=== PATIENT | female | born 1990 | race Caucasian/White ===

== ENCOUNTER → 2016-04-04 | Day surgery (SDC) | payer OTHER ==
[~2016-04-04] MED LIST: ADVICOR PO; AMOXICILLIN500 M1 PO; BIRTH CONTROL PO; EYE DROPS15 M1; HUMALOG100 U/M1; HUMALOG100 U/ML SUBQ; K-DUR20 ME1 PO; KCL PO; LACTINEX T1 TAB.CHEW PO; LANTUS100 U/ML SUBQ; LEVAQUIN PO; LISINOPRIL PO; LORTAB 10-5001 EACH PO; METOPROLOL TAR25 MG; NEURONTIN300 MG PO; NOVOLOG100 U/ML SUBQ; OMNICEF PO; TAMIFLU75 MG PO; ZOVIRAX PO; [UNRECOGNIZED DRUG - OTHER]; [UNRECOGNIZED DRUG - SUPPLY]
--- NOTE | ~2016-04-04 | OR ---
Unit #: [id number] #: [id number] Patient: ANNA SERNA [id number] [address] [address] [id number] O MR#: [id number] NAME: ANNA SERNA ROOM: Date of Procedure: 04/04/2016 Admission Date: 04/04/2016 Surgeon: Fidelia Ocampo M.D. : 1990 Attending Physician: Fidelia Ocampo M.D. Primary Care Physician: Maciel Renee M.D. OPERATIVE REPORT PREOPERATIVE DIAGNOSIS Intermittent exotropia. POSTOPERATIVE DIAGNOSIS Intermittent exotropia. PROCEDURES PERFORMED Bilateral forced ductions and left medial rectus resection, 7 mm via operation. ANESTHESIA General. COMPLICATIONS None. ESTIMATED BLOOD LOSS Less than 1 mL. 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 INDICATIONS FOR PROCEDURE This is a 26-year-old young lady, who presents with intermittent exotropia measuring 20% diopters and primary gaze, and she is status post bilateral strabismus surgery at the age of 8 for the same condition. After discussing the risks, benefits, and alternatives to surgery, including but not limited to bleeding, infection, loss of vision, loss of eye, suture reaction, retinal detachment, persistent deviation, diplopia, need for prism in glasses, and need to return to the operating room, the patient agreed to proceed with surgery. DESCRIPTION OF PROCEDURE The patient was brought back to the operating suite and placed in the supine position. Anesthesia was maintained under general. Both eyes were prepped and draped in usual fashion for ocular surgery. A lid speculum was placed in the right eye. Forced ductions were performed and were found to be negative. A lid speculum was removed. Tegaderm was used to secure the lashes of the left eye, as lid speculum was placed to keep the lids apart. Forced ductions were performed and were found to be negative. The inferonasal conjunctiva was gently lifted with the Gunter forceps to see if there is any adherence to the globe or scar tissue, there were Unit #: [id number] #: [id number] Patient: ANNA SERNA none. A decision was made to isolate the left medial rectus muscle as it seemed that it had not been operated on before. An inferonasal fornix incision was made horizontally to the conjunctiva and vertically to the Tenon capsule. Choi hook was used to engage the medial rectus muscle. This was followed by series of Green hooks. The conjunctival tenon layer was reflected over the toe of the Green hook. A small snip was made through the intermuscular septum. Two Choi hooks were placed through this space and the superior pole test was performed confirming identification of the superior insertion of the muscle. Next, the anterior septal attachments as well as the posterior septal attachments were bluntly dissected off. The muscle was initially secured with a 6-0 Vicryl suture near its insertion. At this time, it was noted that resection was not going to be done, so the needles were cut off and the posterior septal attachments were further dissected off. Using a new 6-0 Vicryl suture, a square knot was made 7 mm from the insertion of the muscle as the central square knot. Each needle was then passed partial thickness followed by locking bite on each end. A second Green hook was placed under the medial rectus muscle and the muscle was placed under stretch. The muscle was disinserted from the globe using the Aebli scissors after placing a Hemostat over the new secured stitch, 7 mm from the insertion site. The overhanging muscle was resected and sent to Pathology. The remaining muscle stump on the hemostat was gently cauterized and was released. There was no bleeding. The muscle was inspected and was found to be intact within its stitch. Each needle was then passed, partial thickness in an anchoring technique and passed through the sclera twice at the insertion site. The muscle was gingerly brought up and tied down. The overlying conjunctiva was closed with one 6-0 plain gut stitch. The eye was addressed with a few drops of 5% Betadine, followed by TobraDex ophthalmic drop and covered with a patch. The patient was extubated and taken to the recovery room, having tolerated the procedure well. Dictated by.Adrienne. Tristen Hills/david TD: 04/04/2016 16:03 JOB #: [id number] OPERATIVE REPORT X X PROCEDURE OPERATIVE NOTE
== END | disposition home or self-care (01) ==
LOC: CSUR 05:48
DX: H50.34 Intermittent alternating exotropia (principal); E11.9 Type 2 diabetes mellitus without complications; Z79.4 Long term (current) use of insulin; Z96.41 Presence of insulin pump (external) (internal); H40.9 Unspecified glaucoma; I10 Essential (primary) hypertension; Z88.6 Allergy status to analgesic agent; Z87.891 Personal history of nicotine dependence
CPT/HCPCS: 82947; 88302; J0131; J1100; J2250; J2405; J3010